=== PATIENT | female | born 1980 | race Caucasian/White ===

== ENCOUNTER 2017-05-19 09:52 | Emergency (ER) | payer BC ==
[2017-05-19 10:01] VITALS: RESP 16; TEMP 98.1; O2SAT 98
--- NOTE | 2017-05-19 10:09 | EDPHY ---
H & P Time Seen by Provider: 05/19/17 10:08 HPI/ROS: Chief complaint. Disoriented HPI. Patient is a 28-year-old female visiting from [place]. She and her arrive 2 days ago from [place]. Also 2 days ago after she arrived she took 1 edible. She had some paranoia and anxiety. She still feeling slightly disoriented. They went hiking yesterday and had decreased water consumption. They also drink wine last night. She has no fever. No chest discomfort, trouble breathing, abdominal pain. However her says she is functioning well. The patient says she is not confused but really does has some cloudy mentation ROS Constitutional. no fever/chills, no weakness Eyes. no problems with vision ENT. no sore throat, no nasal drainage Cardiovascular. no chest pain Respiratory. no shortness of breath, no cough Abdominal. no abdominal pain, no nausea/vomiting, no diarrhea . no problems urinating MS. no calf pain/swelling, no neck/back pain, no joint pain Skin. no rash Lymph. no swollen glands Neuro. Disorientation Past Medical/Surgical History: Healthy Social History: , nonsmoker. Wine last night. At double 2 days ago. Smoking Status: Never smoked Physical Exam: General Appearance: Alert well-developed female mild distress vital signs are stable Eyes: Pupils equal and round no pallor or injection. ENT, Mouth: Mucous membranes are moist. Respiratory: There are no retractions, lungs are clear to auscultation. Cardiovascular: Regular rate and rhythm. Gastrointestinal: Abdomen is soft and nontender, no masses, bowel sounds normal. Neurological: Awake and alert, sensory and motor exams grossly normal. Skin: Warm and dry, no rashes. Musculoskeletal: Neck is supple nontender. Extremities symmetrical, full range of motion. Psychiatric: Patient is oriented X 3, there is no agitation. Constitutional: Initial Vital Signs Temperature (C) 36.7 C 05/19/17 09:57 Heart Rate 64 05/19/17 09:57 Respiratory Rate 16 05/19/17 09:57 Blood Pressure 123/77 H 05/19/17 09:57 O2 Sat (%) 98 05/19/17 09:57 O2 Delivery Mode Room Air Allergies/Adverse Reactions: No Known Allergies Allergy (Unverified 05/19/17 09:57) Home Medications: Medication Instructions Recorded acetaZOLAMIDE [Diamox 250 mg (RX)] 250 mg PO BID #6 tab 05/19/17 Medical Decision Making Procedures: IV normal saline. Diamox orally ED Course/Re-evaluation: Re-evaluation 11:40 a.m.. Patient is stable. She is feeling much better. The patient, her , and I discussed laboratory evaluation, treatment plan including criteria for return importance of follow-up and further evaluation. They expressed understanding and agreement Differential Diagnosis: I believe this really combination of altitude illness, dehydration, and then the edible. No evidence for electrolyte abnormalities or acute illness - Data Points Laboratory Results: Laboratory Results 05/19/17 10:45 05/19/17 10:45 05/19/17 05/19/17 10:45 10:45 WBC 4.38 10^3/uL 10^3/uL (3.80-9.50) RBC 4.50 10^6/uL 10^6/uL (4.18-5.33) Hgb 13.8 g/dL g/dL (12.6-16.3) Hct 39.6 % % (38.0-47.0) MCV 88.0 fL fL (81.5-99.8) MCH 30.7 pg pg (27.9-34.1) MCHC 34.8 g/dL g/dL (32.4-36.7) RDW 12.8 % % (11.5-15.2) Plt Count 216 10^3/uL 10^3/uL (150-400) MPV 11.0 fL fL (8.7-11.7) Neut % (Auto) 51.1 % % (39.3-74.2) Lymph % (Auto) 35.4 % % (15.0-45.0) [place] % (Auto) 12.1 % % (4.5-13.0) Eos % (Auto) 0.5 % L % (0.6-7.6) Baso % (Auto) 0.7 % % (0.3-1.7) Nucleat RBC Rel Count 0.0 % % (0.0-0.2) Absolute Neuts (auto) 2.24 10^3/uL 10^3/uL (1.70-6.50) Absolute Lymphs (auto) 1.55 10^3/uL 10^3/uL (1.00-3.00) Absolute Monos (auto) 0.53 10^3/uL 10^3/uL (0.30-0.80) Absolute Eos (auto) 0.02 10^3/uL L 10^3/uL (0.03-0.40) Absolute Basos (auto) 0.03 10^3/uL 10^3/uL (0.02-0.10) Absolute Nucleated RBC 0.00 10^3/uL 10^3/uL (0-0.01) Immature Gran % 0.2 % % (0.0-1.1) Immature Gran # 0.01 10^3/uL 10^3/uL (0.00-0.10) Sodium 143 mEq/L mEq/L (134-144) Potassium 3.7 mEq/L mEq/L (3.5-5.2) Chloride 105 mEq/L mEq/L (97-110) Carbon Dioxide 25 mEq/l mEq/l (22-31) Anion Gap 13 mEq/L mEq/L (8-16) BUN 7 mg/dL mg/dL (7-23) Creatinine 0.7 mg/dL mg/dL (0.6-1.0) Estimated GFR > 60 Glucose 86 mg/dL mg/dL (70-100) Calcium 9.2 mg/dL mg/dL (8.5-10.4) Medications Given: Acetazolamide (Diamox) 250 mg PO DAILY AIDAN Stop: 11/15/17 10:44 Last Admin: 05/19/17 11:03 Dose: 250 mg Discontinued Medications Sodium Chloride (Ns) 1,000 mls @ 0 mls/hr IV EDNOW ONE; Wide Open PRN Reason: Protocol Stop: 05/19/17 10:32 Last Admin: 05/19/17 10:47 Dose: 1,000 mls Sodium Chloride (Ns) 1,000 mls @ 0 mls/hr IV EDNOW ONE; Wide Open PRN Reason: Protocol Stop: 05/19/17 10:32 Last Admin: 05/19/17 10:48 Dose: 1,000 mls Departure - Departure Disposition: Home, Routine, Self-Care Clinical Impression: Altitude illness Qualifiers: Encounter type: initial encounter Qualified Code(s): T70.29XA - Other effects of high altitude, initial encounter Condition: Good Instructions: Mountain Sickness (ED) Additional Instructions: Drink plenty of fluids and stay hydrated. diamox twice daily for altitude acclimitization. easy activity. return for worsening symptoms. re-check in 2- 3 days if not continuing to improve. Referrals: NONE *PRIMARY CARE P,. [Primary Care Provider] - As per Instructions Prescriptions: acetaZOLAMIDE [Diamox 250 mg (RX)] 250 mg PO BID #6 tab
[2017-05-19] MEDS ORDERED: NS 1,000 ML IV ONE ×2 (10:31)
[2017-05-19] MEDS ORDERED: acetaZOLAMIDE 250 MG TAB PO SCH (10:45)
[2017-05-19 11:02] LABS: PLATELET COUNT 216 10^3/uL (150-400)
[2017-05-19 11:30] VITALS: BP 118/72; PULSE 75
== END 2017-05-19 12:00 | disposition home or self-care (01) ==
PROC: 3E0337Z Introduction of Electrolytic and Water Balance Substance into Peripheral Vein, Percutaneous Approach (ICD-10-PCS; principal; 2017-05-19)
DX: T70.29XA Other effects of high altitude, initial encounter (principal); E86.9 Volume depletion, unspecified